=== PATIENT | female | born 1980 ===

== ENCOUNTER 2017-08-07 10:26 | Emergency (ER) | payer OTHER ==
[2017-08-07 11:10] VITALS: RESP 18; TEMP 97.6; BMI 23.1
[2017-08-07] MEDS ORDERED: Sodium Chloride 0.9% 1,000 ML IV STA (11:32)
--- NOTE | 2017-08-07 11:33 | ED PDOC ---
Arrival/HPI - General Chief Complaint: Abdominal Pain Time Seen by Provider: 08/07/17 11:31 Historian: Patient - History of Present Illness Narrative History of Present Illness (Text): 08/07/17 11:31 This 37 yo female with a pmh hypothyroidism, and constipation, presents to this ED c/o abdominal pain x 1 day. Patient stated after eating cookies yesterday morning, she developed an acute abdominal pain, which it has been progressively worsen. Patient stated abdominal pain radiates to her anus. Patient denies nausea, vomiting, rectal pain, rectal bleeding, sob, cp, urinary symptoms, or abnormal gait. Time/Duration: Other (see hpi) Quality: Aching Context: Home Past Medical History - Provider Review Nursing Documentation Reviewed: Yes - Past History Past History: No Previous - Infectious Disease Hx of Infectious Diseases: None - Tetanus Immunization Tetanus Immunization: Unknown - Reproductive Menopause: No - Past Medical History Past Medical History: No Previous - Cardiac Hx Cardiac Disorders: No - Pulmonary Hx Respiratory Disorders: No - Neurological Hx Neurological Disorder: No - HEENT Hx HEENT Disorder: No - Renal Hx Renal Disorder: No - Endocrine/Metabolic Hx Endocrine Disorders: Yes Hx Hypothyroidism: Yes - Hematological/Oncological Hx Blood Disorders: No - Integumentary Hx Dermatological Disorder: Yes (DX:NECK MASS) - Musculoskeletal/Rheumatological Hx Musculoskeletal Disorders: Yes Hx Back Pain: Yes - Gastrointestinal Hx Gastrointestinal Disorders: No - Genitourinary/Gynecological Hx Genitourinary Disorders: No - Psychiatric Hx Psychophysiologic Disorder: No Hx Depression: No Hx Emotional Abuse: No Hx Physical Abuse: No Hx Substance Use: No - Past Surgical History Past Surgical History: No Previous - Surgical History Hx Section: Yes - Anesthesia Hx Anesthesia: Yes Hx Anesthesia Reactions: No Hx Malignant Hyperthermia: No - Suicidal Assessment Feels Threatened In Home Enviroment: No Family/Social History - Physician Review Nursing Documentation Reviewed: Yes Family/Social History: Other (noncontributory) Smoking Status: Never Smoked Hx Alcohol Use: No Hx Substance Use: No Hx Substance Use Treatment: No Allergies/Home Meds Allergies/Adverse Reactions: Allergies No Known Allergies Allergy (Verified 03/05/16 16:31) Home Medications: Home Meds Medication Instructions Recorded Confirmed Levothyroxine [Levoxyl] 0.025 mg PO DAILY 01/02/15 03/05/16 Review of Systems - Review of Systems Constitutional: Normal. absent: Fatigue, Weight Change, Fevers Eyes: Normal ENT: Normal Respiratory: Normal. absent: SOB, Cough, Sputum Cardiovascular: Normal. absent: Chest Pain, Palpitations Gastrointestinal: Normal. absent: Abdominal Pain, Nausea, Vomiting Genitourinary Female: Normal. absent: Dysuria, Frequency, Hematuria Musculoskeletal: Normal Skin: Normal Neurological: Normal. absent: Headache, Dizziness Endocrine: Normal Hemo/Lymphatic: Normal Psychiatric: Normal Physical Exam Vital Signs Temp Pulse Resp BP Pulse Ox 08/07/17 13:00 69 18 109/78 100 08/07/17 11:41 75 18 107/76 100 08/07/17 11:02 97.6 F 80 18 105/71 99 Temperature: Afebrile Blood Pressure: Normal Pulse: Regular Respiratory Rate: Normal Appearance: Positive for: Well-Appearing, Non-Toxic, Comfortable Pain Distress: None Mental Status: Positive for: Alert and Oriented X 3 - Systems Exam Head: Present: Atraumatic, Normocephalic Pupils: Present: PERRL Extroacular Muscles: Present: EOMI Conjunctiva: Present: Normal Mouth: Present: Moist Mucous Membranes Neck: Present: Normal Range of Motion. No: Meningeal Signs Respiratory/Chest: Present: Clear to Auscultation, Good Air Exchange. No: Respiratory Distress, Accessory Muscle Use Cardiovascular: Present: Regular Rate and Rhythm, Normal S1, S2. No: Murmurs Abdomen: Present: Tenderness (Mild LLQ tenderness). No: Distention, Peritoneal Signs, Rebound, Guarding, McBurney's Point Tender, Rovsing's Sign Present, Hernias, Scars Rectal: Present: Hemorrhoids (very small hemorrhoid, nontender. 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 No: Occult Blood, Rectal Tenderness, Gross Blood, Melena, Fissures, Nodule/Mass/Lesions Genitourinary/Pelvic Exam: Present: Other (deferred) Back: Present: Normal Inspection Upper Extremity: Present: Normal Inspection, Normal ROM. No: Cyanosis, Edema Lower Extremity: Present: Normal Inspection. No: Edema Neurological: Present: GCS=15, CN II-XII Intact, Speech Normal, Motor Func Grossly Intact, Normal Sensory Function, Normal Cerebellar Funct, Gait Normal, Memory Normal Skin: Present: Warm, Dry, Normal Color. No: Rashes Psychiatric: Present: Alert, Oriented x 3, Normal Insight, Normal Concentration Medical Decision Making ED Course and Treatment: 08/07/17 14:02 Re-evaluation. Patient feels better. Discussed results and plan with patient who expresses understanding. All questions answered and there is agreement with the plan to discharge home with instructions. Patient stable for discharge. Return if symptoms persist or worsen. Re-evaluation Time: 14:29 Reassessment Condition: Re-examined, Improved - Lab Interpretations Lab Results: 08/07/17 12:00 08/07/17 12:00 Lab Results 08/07/17 12:00: Sodium 141, Potassium 3.9, Chloride 105, Carbon Dioxide 27, Anion Gap 13, BUN 7, Creatinine 0.7, Est GFR ( Amer) > 60, Est GFR (Non- Af Amer) > 60, Random Glucose 84, Calcium 8.8, Total Bilirubin 0.8, AST 42 H, ALT 28, Alkaline Phosphatase 61, Total Protein 7.4, Albumin 4.2, Globulin 3.1, Albumin/Globulin Ratio 1.4, Lipase 56 08/07/17 12:00: WBC 9.3 D, RBC 4.30, Hgb 13.5, Hct 38.9, MCV 90.5, MCH 31.4, MCHC 34.7, RDW 12.9, Plt Count 266, MPV 9.7, Gran % 63.8, Lymph % (Auto) 28.8, [place] % (Auto) 5.6, Eos % (Auto) 1.6, Baso % (Auto) 0.2, Gran # 5.91, Lymph # ( Auto) 2.7, [place] # (Auto) 0.5, Eos # (Auto) 0.2, Baso # (Auto) 0.02 08/07/17 11:44: Urine Color Yellow, Urine Appearance Clear, Urine pH 8.5, Ur Specific [place] 1.015, Urine Protein Trace H, Urine Glucose (UA) Negative, Urine Ketones Negative, Urine Blood Negative, Urine Nitrate Negative, Urine Bilirubin Negative, Urine Urobilinogen 0.2, Ur Leukocyte Esterase Negative, Urine RBC Negative, Urine WBC 2 - 5, Ur Epithelial Cells 6 - 8, Urine Bacteria Few, Urine HCG, Qual Negative I have reviewed the lab results: Yes Interpretation: No clinic. lab abnormalty - RAD Interpretation Narrative RAD Interpretations (Text): 08/07/17 13:59 PROCEDURE: CT Abdomen and Pelvis with contrast FINDINGS: LOWER THORAX: Unremarkable. LIVER: Unremarkable. No gross lesion or ductal dilatation. GALLBLADDER AND BILE DUCTS: Unremarkable. PANCREAS: Unremarkable. No gross lesion or ductal dilatation. SPLEEN: Unremarkable. ADRENALS: Unremarkable. No mass. KIDNEYS AND URETERS: Unremarkable. No hydronephrosis. No solid mass. VASCULATURE: Unremarkable. No aortic aneurysm. BOWEL: Unremarkable. No obstruction. No gross mural thickening. APPENDIX: Normal appendix. PERITONEUM: Unremarkable. No free fluid. No free air. LYMPH NODES: Unremarkable. No enlarged lymph nodes. BLADDER: Unremarkable. REPRODUCTIVE: There is a thick-walled ovarian cyst in the right ovary measuring 2 cm. This is most likely a recently ruptured cyst. Multiple large ovarian varices are seen on the left side of the pelvis. There is marked enlargement of the left ovarian vein extending up to the left renal vein BONES: No acute fracture. OTHER FINDINGS: None. IMPRESSION: There is a thick-walled ovarian cyst in the right ovary measuring 2 cm. This is most likely a recently ruptured cyst. Multiple large ovarian varices are seen on the left side of the pelvis. There is marked enlargement of the left ovarian vein extending up to the left renal vein Radiology Orders: 08/07/17 11:33 ABD & PELVIS IV CONTRAST ONLY [CT] Stat - Medication Orders Current Medication Orders: Discontinued Medications Famotidine (Pepcid) 20 mg IVP STAT STA Stop: 08/07/17 11:33 Last Admin: 08/07/17 12:00 Dose: 20 mg IVP Administration Document 08/07/17 12:00 RD (Rec: 08/07/17 12:00 RD [id number]) Charges for Administration # of IVP Administrations 1 Sodium Chloride (Sodium Chloride 0.9%) 1,000 mls @ 1,000 mls/hr IV .Q1H STA Stop: 08/07/17 12:31 Last Admin: 08/07/17 12:00 Dose: 1,000 mls/hr eMAR Start Stop Document 08/07/17 12:00 RD (Rec: 08/07/17 12:02 RD [id number]) Intravenous Solution Start Date 08/07/17 Start Time 12:00 End Date 08/07/17 End time 13:00 Total Infusion Time 60 Ketorolac Tromethamine (Toradol) 15 mg IVP STAT STA Stop: 08/07/17 11:33 Last Admin: 08/07/17 12:02 Dose: 15 mg MAR Pain Assessment Document 08/07/17 12:02 RD (Rec: 08/07/17 12:01 RD [id number]) Pain Reassessment Is this a pain reassessment? No Sleep Is patient sleeping during reassessment? No Presence of Pain Presence of Pain Yes Pain Scale Used Pain Scale Used Numeric Location Upper or Lower Lower Pain Location Body Site Abdomen Description Description Sharp Intensity of Pain at present 4 Acceptable Level of Pain 1 Pain Behavior Irritability IVP Administration Document 08/07/17 12:02 RD (Rec: 08/07/17 12:01 RD [id number]) Charges for Administration # of IVP Administrations 1 Disposition/Present on Arrival - Present on Arrival Any Indicators Present on Arrival: No History of DVT/PE: No History of Uncontrolled Diabetes: No Urinary Catheter: No History of Decub. 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 [place] medicina con comida para el dolor. Regrese a la emergencia si dolor aumenta. Prescriptions: Ibuprofen [Motrin] 600 mg PO Q8H PRN #20 tab PRN Reason: Pain, Severe (8-10) Referrals: Claudia Gallegos DO [Primary Care Provider] - Follow up with primary Avril Wood MD [Medical Doctor] - Follow up with primary Forms: [employer] (Syrian), WORK NOTE
[2017-08-07 11:42] VITALS: O2SAT 100
[2017-08-07 11:48] LABS: PH,URINE 8.5 (4.7-8.0); URINE BILIRUBIN NEGATIVE (NEGATIVE); URINE BLOOD NEGATIVE (NEGATIVE); URINE GLUCOSE (UA) NEGATIVE (NEGATIVE); URINE LEUKOCYTE ESTERASE NEGATIVE Leu/uL (NEGATIVE); URINE PROTEIN TRACE mg/dL (<30 mg/dL); URINE UROBILINOGEN 0.2 E.U./dL (<1 E.U./dL)
[2017-08-07 11:50] LABS: URINE APPEARANCE CLEAR (CLEAR); URINE COLOR YELLOW (YELLOW)
[2017-08-07 11:52] LABS: HCG,QUALITATIVE URINE NEGATIVE (NEGATIVE)
[2017-08-07 12:04] LABS: BASO # 0.02 K/mm3 (0.0-2.0); BASO % 0.2 % (0.0-3.0); EOS # 0.2 (0.0-0.7); EOS % 1.6 % (1.5-5.0); GRAN # 5.91 (1.4-6.5); GRAN % 63.8 % (50.0-68.0); HEMOGLOBIN 13.5 g/dL (12.0-16.0); LYMPH # 2.7 (1.2-3.4); LYMPH % 28.8 % (22.0-35.0); MEAN CELL VOLUME 90.5 fl (80.0-105.0); MEAN CORPUSCULAR HEMOGLOBIN 31.4 pg (25.0-35.0); MEAN CORPUSCULAR HGB CONC 34.7 g/dl (31.0-37.0); MEAN PLATELET VOLUME 9.7 fl (7.0-11.0); MONO # 0.5 (0.1-0.6); MONO % 5.6 % (1.0-6.0); RBC 4.3 10^6/uL (3.5-6.1); RED CELL DISTRIBUTION WIDTH 12.9 % (11.5-14.5); WHITE BLOOD COUNT 9.3 10^3/ul (4.5-11.0)
[2017-08-07 12:13] LABS: URINE RBC NEGATIVE /hpf (0-2)
[2017-08-07 12:14] LABS: URINE BACTERIA FEW (NEG)
[2017-08-07 12:16] LABS: ALB/GLOB RATIO 1.4 (1.1-1.8); ALBUMIN 4.2 g/dL (3.0-4.8); ALT/SGPT 28 U/L (7-56); AST/SGOT 42 U/L (14-36); BLOOD UREA NITROGEN 7 mg/dL (7-21); CALCIUM 8.8 mg/dL (8.4-10.5); GFR AFRICAN-AMERICAN > 60; GFR NON-AFRICAN AMERICAN > 60; LIPASE 56 U/L (23-300)
[2017-08-07] MEDS ORDERED: Iohexol 350 MG/100 ML VIAL ONE (12:27)
--- NOTE | 2017-08-07 13:12 | CT ---
PROCEDURE: CT Abdomen and Pelvis with contrast HISTORY: LLQ abdominal pain COMPARISON: None. TECHNIQUE: Contrast dose: 100 cc of Omni 350 Radiation dose: Total exam DLP = 412 mGy-cm. This CT exam was performed using one or more of the following dose reduction techniques: Automated exposure control, adjustment of the mA and/or kV according to patient size, and/or use of iterative reconstruction technique. FINDINGS: LOWER THORAX: Unremarkable. LIVER: Unremarkable. No gross lesion or ductal dilatation. GALLBLADDER AND BILE DUCTS: Unremarkable. PANCREAS: Unremarkable. No gross lesion or ductal dilatation. SPLEEN: Unremarkable. ADRENALS: Unremarkable. No mass. KIDNEYS AND URETERS: Unremarkable. No hydronephrosis. No solid mass. VASCULATURE: Unremarkable. No aortic aneurysm. BOWEL: Unremarkable. No obstruction. No gross mural thickening. APPENDIX: Normal appendix. PERITONEUM: Unremarkable. No free fluid. No free air. LYMPH NODES: Unremarkable. No enlarged lymph nodes. BLADDER: Unremarkable. REPRODUCTIVE: There is a thick-walled ovarian cyst in the right ovary measuring 2 cm. This is most likely a recently ruptured cyst. Multiple large ovarian varices are seen on the left side of the pelvis. There is marked enlargement of the left ovarian vein extending up to the left renal vein BONES: No acute fracture. OTHER FINDINGS: None. IMPRESSION: There is a thick-walled ovarian cyst in the right ovary measuring 2 cm. This is most likely a recently ruptured cyst. Multiple large ovarian varices are seen on the left side of the pelvis. There is marked enlargement of the left ovarian vein extending up to the left renal vein
[2017-08-07 15:24] VITALS: BP 111/74; PULSE 68
== END 2017-08-07 15:26 | disposition home or self-care (01) ==
LOC: ED 10:26
DX: N83.201 Unspecified ovarian cyst, right side (principal); I86.8 Varicose veins of other specified sites; E03.9 Hypothyroidism, unspecified
CPT/HCPCS: 74177; 80053; 81001; 81025; 83690; 84703; 85025; 87086; 96361; 96374; 96375; 99284; J1885; J7040; Q9967

== ENCOUNTER 2018-04-03 18:48 | Emergency (ER) | payer OTHER ==
[2018-04-03 18:48] VITALS: BMI 23.1
--- NOTE | 2018-04-03 20:42 | ED PDOC ---
Arrival/HPI - General Chief Complaint: Female Genitourinary Time Seen by Provider: 04/03/18 19:08 - History of Present Illness Narrative History of Present Illness (Text): 04/03/18 20:11 A 38 year old female who is 4 weeks presents to the emergency department complaining of brown discharge from earlier today. Patient reports experiencing associated lower back pain and states she had an ultrasound 2 weeks ago confirming her . Patient denies any vaginal bleeding, fever, shortness of breath, nausea, vomiting, headache, dizziness, or any other complaints. PMD: Claudia Howard Time/Duration: Other (earlier today) Symptom Onset: Gradual Symptom Course: Unchanged Activities at Onset: Light Context: Home Past Medical History - Provider Review Nursing Documentation Reviewed: Yes - Past History Past History: No Previous - Infectious Disease Hx of Infectious Diseases: None - Tetanus Immunization Tetanus Immunization: Unknown - Past Medical History Past Medical History: No Previous - Cardiac Hx Cardiac Disorders: No - Pulmonary Hx Respiratory Disorders: No - Neurological Hx Neurological Disorder: No - HEENT Hx HEENT Disorder: No - Renal Hx Renal Disorder: No - Endocrine/Metabolic Hx Endocrine Disorders: Yes Hx Hypothyroidism: Yes - Hematological/Oncological Hx Blood Disorders: No - Integumentary Hx Dermatological Disorder: Yes (DX:NECK MASS) - Musculoskeletal/Rheumatological Hx Musculoskeletal Disorders: Yes Hx Back Pain: Yes - Gastrointestinal Hx Gastrointestinal Disorders: No - Genitourinary/Gynecological Hx Genitourinary Disorders: No - Psychiatric Hx Psychophysiologic Disorder: No Hx Depression: No Hx Emotional Abuse: No Hx Physical Abuse: No Hx Substance Use: No - Past Surgical History Past Surgical History: No Previous - Surgical History Hx Section: Yes - Anesthesia Hx Anesthesia: Yes Hx Anesthesia Reactions: No Hx Malignant Hyperthermia: No - Suicidal Assessment Feels Threatened In Home Enviroment: No Family/Social History - Physician Review Nursing Documentation Reviewed: Yes Family/Social History: No Known Family HX Smoking Status: Never Smoked Hx Alcohol Use: No Hx Substance Use: No Hx Substance Use Treatment: No Allergies/Home Meds Allergies/Adverse Reactions: Allergies No Known Allergies Allergy (Verified 03/05/16 16:31) Home Medications: Home Meds Medication Instructions Recorded Confirmed Levothyroxine [Levoxyl] 0.025 mg PO DAILY 01/02/15 03/05/16 Review of Systems - Physician Review All systems were reviewed & negative as marked: Yes - Review of Systems Constitutional: absent: Fevers Respiratory: absent: SOB Gastrointestinal: absent: Nausea, Vomiting Genitourinary Female: Urine Output Changes (brown discharge). absent: Vaginal Bleeding Neurological: absent: Headache, Dizziness Physical Exam Vital Signs Reviewed: Yes Vital Signs Temp Pulse Resp BP Pulse Ox 04/03/18 18:48 98.5 F 69 18 102/66 100 Temperature: Afebrile Blood Pressure: Normal Pulse: Regular Respiratory Rate: Normal Appearance: Positive for: Well-Appearing, Non-Toxic Mental Status: Positive for: Alert and Oriented X 3 - Systems Exam Head: Present: Atraumatic, Normocephalic Pupils: Present: PERRL Extroacular Muscles: Present: EOMI Conjunctiva: Present: Normal Respiratory/Chest: Present: Clear to Auscultation, Good Air Exchange. No: Respiratory Distress, Accessory Muscle Use Cardiovascular: Present: Regular Rate and Rhythm, Normal S1, S2. No: Murmurs Abdomen: No: Tenderness, Distention, Peritoneal Signs Back: Present: Normal Inspection Upper Extremity: Present: Normal Inspection. No: Cyanosis, Edema Lower Extremity: Present: Normal Inspection. No: Edema Neurological: Present: GCS=15, CN II-XII Intact, Speech Normal Skin: Present: Warm, Dry, Normal Color. No: Rashes Psychiatric: Present: Alert, Oriented x 3, Normal Insight, Normal Concentration Medical Decision Making ED Course and Treatment: 04/03/18 20:17 Impression:A 38 year old female who is 4 weeks presents to the emergency department complaining of brown discharge. Plan: -- Type and screen -- Labs -- Urine culture -- Urinalysis -- Ultrasound -- Reassess and disposition Prior Visits: Notes and results from previous visits were reviewed. Progress Notes: Labs reviewed : beta quant 25,430, blood type O+. US : PROCEDURE: US TRANSVAGINAL Electronically signed on Apr 03, 2018 11:03:51 PM EST by: Tavares Han M.D IMPRESSION: 1. Intrauterine gestation, 6 weeks 4 day based on todays crown/rump length. 2. Left ovarian cyst. On reevaluation, patient reports no abdominal pain or vaginal bleeding. On exam, patient remains awake alert and oriented 3 in no acute distress. Labs and US results d/w the patient. Advised to follow up with program director scouting in 1-2 days without fail. Return to the emergency room at any time for any new or worsening symptoms. Patient states she fully agrees with and understands discharge instructions. States that she agrees with the plan and disposition. Verbalized and repeated discharge instructions and plan. I have given the patient opportunity to ask any additional questions. - RAD Interpretation Radiology Orders: 04/03/18 20:20 TRANSVAGINAL [US] Stat - PA / INSTRUCTIONAL ASSISTANT / Resident Statement / has reviewed & agrees with the documentation as recorded. Disposition/Present on Arrival - Present on Arrival Any Indicators Present on Arrival: No History of DVT/PE: No History of Uncontrolled Diabetes: No Urinary Catheter: No History of Decub. Ulcer: No History Surgical Site Infection Following: None - Disposition Have Diagnosis and Disposition been Completed?: Yes Diagnosis: Threatened miscarriage in early Disposition: HOME/ ROUTINE Disposition Time: 23:00 Patient Plan: Discharge Condition: STABLE Discharge Instructions (ExitCare): Bleeding With (DC) Additional Instructions: Thank you for letting us take care of you today. You were treated for threatened miscarriage. The emergency medical care you received today was directed at your acute symptoms Return to the Emergency Department if your symptoms worsen, do not improve, or if you have any other problems. Please contact your doctor in 2 days for re-evaluation and follow up. Bring any paperwork you were given at discharge with you along with any medications you are taking to your follow up visit. Our treatment cannot replace ongoing medical care by a primary care provider (PCP) outside of the emergency department. Thank you for allowing the [facility] team to be part of your care today. If you had a urine culture: It will take several days for the results, if any change in treatment is needed we will contact you. Referrals: Claudia Gallegos DO [Primary Care Provider] - Follow up with primary Forms: [employer] (Malaysian)
[2018-04-03 20:58] LABS: BASO # 0.01 K/mm3 (0.0-2.0); BASO % 0.1 % (0.0-3.0); EOS # 0.2 (0.0-0.7); EOS % 1.7 % (1.5-5.0); GRAN # 4.63 (1.4-6.5); GRAN % 54.1 % (50.0-68.0); HEMOGLOBIN 11.6 g/dL (12.0-16.0); LYMPH # 3.2 (1.2-3.4); LYMPH % 36.9 % (22.0-35.0); MEAN CELL VOLUME 89.7 fl (80.0-105.0); MEAN CORPUSCULAR HEMOGLOBIN 30.7 pg (25.0-35.0); MEAN CORPUSCULAR HGB CONC 34.2 g/dl (31.0-37.0); MEAN PLATELET VOLUME 9.3 fl (7.0-11.0); MONO # 0.6 (0.1-0.6); MONO % 7.2 % (1.0-6.0); PH,URINE 6.5 (4.7-8.0); RBC 3.78 10^6/uL (3.5-6.1); RED CELL DISTRIBUTION WIDTH 12.9 % (11.5-14.5); URINE BILIRUBIN NEGATIVE (NEGATIVE); URINE BLOOD TRACE-INTACT (NEGATIVE); URINE GLUCOSE (UA) NEGATIVE (NEGATIVE); URINE LEUKOCYTE ESTERASE NEGATIVE Leu/uL (NEGATIVE); URINE PROTEIN NEGATIVE mg/dL (<30 mg/dL); URINE UROBILINOGEN 0.2 E.U./dL (<1 E.U./dL); WHITE BLOOD COUNT 8.6 10^3/uL (4.5-11.0)
[2018-04-03 21:00] LABS: URINE APPEARANCE CLEAR (CLEAR); URINE COLOR YELLOW (YELLOW)
[2018-04-03 21:05] LABS: ALB/GLOB RATIO 1.3 (1.1-1.8); ALBUMIN 4.2 g/dL (3.0-4.8); ALT/SGPT 28 U/L (7-56); AST/SGOT 29 U/L (14-36); BLOOD UREA NITROGEN 8 mg/dL (7-21); CALCIUM 8.9 mg/dL (8.4-10.5); GFR NON-AFRICAN AMERICAN > 60
[2018-04-03 22:05] LABS: URINE BACTERIA FEW /hpf
[2018-04-03 23:18] VITALS: BP 101/57; PULSE 80; RESP 20; TEMP 98.1; O2SAT 96
--- NOTE | 2018-04-04 09:51 | US ---
Date of service: 04/03/2018 PROCEDURE: First trimester ultrasound HISTORY: OB US, vag bleed, 1 month preg COMPARISON: None . TECHNIQUE: Standard protocol for this study/examination. FINDINGS: LMP: 02/20/2018. Prior examinations from the current : None. TECHNIQUE: Real-time 2D imaging, duplex and color Doppler. FINDINGS: Cardiac activity: Present Rate: One hundred thirty-one BPM Measurements: [place] rump length: 0.59 cm Gestational age based on CRL 6 weeks 3 days Gestational age 6 weeks 4 days based on gestational sac measurement 2.07 cm Gestational age derived from LMP: 6 weeks RENE based on LMP: 11/27/2018 RENE based on biometry: 11/23/2018 Gestational concordance documented Yolk sac identified Cervix: No Cervical abnormalities: Negative examination for cervical dilatation or effacement. Closed cervix. Subchorionic hemorrhage: None UTERUS: 5 x 7.2 x 8.5 cm. ADNEXA: Right: 1.8 x 2.2 x 2.5 cm. Normal Doppler arterial waveform documented. Left: 2.8 x 3 x 3.3 cm. Simple cyst 1.2 x 1.5 cm. Normal Doppler arterial waveform documented Fluid in the cul-de-sac: None. IMPRESSION: Six weeks 4 days live intrauterine gestation. Gestational concordance documented. Concordant findings (preliminary report) provided by [facility].
== END 2018-04-03 23:31 | disposition home or self-care (01) ==
LOC: ED 18:48
DX: O20.0 Threatened abortion (principal); Z3A.01 Less than 8 weeks gestation of pregnancy

== ENCOUNTER 2018-06-04 08:52 | Emergency (ER) | payer OTHER ==
[2018-06-04 09:05] VITALS: BMI 25.8
[2018-06-04 09:16] VITALS: RESP 18; TEMP 98.8; O2SAT 100
[2018-06-04 09:36] LABS: PH,URINE 7.5 (4.7-8.0); URINE BILIRUBIN NEGATIVE (NEGATIVE); URINE BLOOD TRACE-LYSED (NEGATIVE); URINE GLUCOSE (UA) NEGATIVE (NEGATIVE); URINE LEUKOCYTE ESTERASE NEGATIVE Leu/uL (NEGATIVE); URINE PROTEIN NEGATIVE mg/dL (<30 mg/dL); URINE UROBILINOGEN 0.2 E.U./dL (<1 E.U./dL)
[2018-06-04 09:42] LABS: URINE APPEARANCE CLEAR (CLEAR); URINE COLOR YELLOW (YELLOW)
--- NOTE | 2018-06-04 09:49 | ED PDOC ---
Arrival/HPI - General Chief Complaint: Back Pain Time Seen by Provider: 06/04/18 09:17 Historian: Patient - History of Present Illness Narrative History of Present Illness (Text): 06/04/18 09:45 38yo female with pmhx of hyperthyroid who present with complaint of b/l flank pain that radiates to her pelvic area x 5days. States she is currently 14weeks and saw her OB last week. Notes normal without complication up to this point. States she have appointment with her OB for next week. Admits to nausea, but states is chronic with her . Denies vaginal bleeding, dysuria, fever, chills, back pain, vomiting, diarrhea, constipation, any other complaint. Past Medical History - Provider Review Nursing Documentation Reviewed: Yes - Past History Past History: No Previous - Infectious Disease Hx of Infectious Diseases: None - Tetanus Immunization Tetanus Immunization: Unknown - Reproductive Menopause: No - Past Medical History Past Medical History: No Previous - Cardiac Hx Cardiac Disorders: No - Pulmonary Hx Respiratory Disorders: No - Neurological Hx Neurological Disorder: No - HEENT Hx HEENT Disorder: No - Renal Hx Renal Disorder: No - Endocrine/Metabolic Hx Endocrine Disorders: Yes Hx Hypothyroidism: Yes - Hematological/Oncological Hx Blood Disorders: No - Integumentary Hx Dermatological Disorder: Yes ([id number] MASS) - Musculoskeletal/Rheumatological Hx Musculoskeletal Disorders: Yes Hx Back Pain: Yes - Gastrointestinal Hx Gastrointestinal Disorders: No - Genitourinary/Gynecological Hx Genitourinary Disorders: No - Psychiatric Hx Psychophysiologic Disorder: No Hx Depression: No Hx Emotional Abuse: No Hx Physical Abuse: No Hx Substance Use: No - Past Surgical History Past Surgical History: No Previous - Surgical History Hx Section: Yes - Anesthesia Hx Anesthesia: Yes Hx Anesthesia Reactions: No Hx Malignant Hyperthermia: No - Suicidal Assessment Feels Threatened In Home Enviroment: No Family/Social History - Physician Review Nursing Documentation Reviewed: Yes Family/Social History: Unknown Family HX Smoking Status: Never Smoked Hx Alcohol Use: No Hx Substance Use: No Hx Substance Use Treatment: No Allergies/Home Meds Allergies/Adverse Reactions: Allergies No Known Allergies Allergy (Verified 03/05/16 16:31) Home Medications: Home Meds Medication Instructions Recorded Confirmed Levothyroxine [Levoxyl] 0.025 mg PO DAILY 01/02/15 06/04/18 Review of Systems - Physician Review All systems were reviewed & negative as marked: Yes - Review of Systems Constitutional: Normal Eyes: Normal ENT: Normal Respiratory: Normal Cardiovascular: Normal Gastrointestinal: Abdominal Pain, Nausea. absent: Constipation, Diarrhea, Vomiting, Hematochezia, Hematemesis Genitourinary Female: Normal Musculoskeletal: Normal Skin: Normal Neurological: Normal Endocrine: Normal Hemo/Lymphatic: Normal Psychiatric: Normal Physical Exam Vital Signs Reviewed: Yes Vital Signs Temp Pulse Resp BP Pulse Ox 06/04/18 09:15 98.8 F 78 18 106/58 L 100 Temperature: Afebrile Blood Pressure: Normal Pulse: Regular Respiratory Rate: Normal Appearance: Positive for: Well-Appearing, Non-Toxic, Comfortable Pain Distress: None Mental Status: Positive for: Alert and Oriented X 3 - Systems Exam Head: Present: Atraumatic, Normocephalic Pupils: Present: PERRL Extroacular Muscles: Present: EOMI Conjunctiva: Present: Normal Mouth: Present: Moist Mucous Membranes Neck: Present: Normal Range of Motion Respiratory/Chest: Present: Clear to Auscultation, Good Air Exchange. No: Respiratory Distress, Accessory Muscle Use Cardiovascular: Present: Regular Rate and Rhythm, Normal S1, S2. No: Murmurs Abdomen: Present: Distention (Gravidus abdomen), Normal Bowel Sounds. No: Tenderness, Peritoneal Signs, Rebound, Guarding, McBurney's Point Tender, Rovsing's Sign Present Back: Present: Normal Inspection Upper Extremity: Present: Normal Inspection. No: Cyanosis, Edema Lower Extremity: Present: Normal Inspection. No: Edema Neurological: Present: GCS=15, CN II-XII Intact, Speech Normal Skin: Present: Warm, Dry, Normal Color. No: Rashes Psychiatric: Present: Alert, Oriented x 3, Normal Insight, Normal Concentration Medical Decision Making ED Course and Treatment: 06/04/18 13:54 38yo female present with stated history. Notes 14weeks . She denied vaginal bleeding/discharge in ED. UA Abdominal/ US Impression: Single living fetus with a composite sonographic age of 15 weeks 1 day. Estimated heart rate 158 beats per min. Currently, there is evidence of placenta previa. Due to placental trophotropism, the diagnosis of the placenta previa is generally not made before 20 weeks gestation. Follow-up ultrasound is recommended. Advise an anomaly screen at 16-18 weeks gestational age. Abdominal US IMPRESSION: Unremarkable abdominal sonogram. UA - No UTI Result was DW the pt. she noted that she have a OB and appointment next week. She was strongly advised to f/u with the OB. TRT ED for any new or worsening symptoms - Lab Interpretations Lab Results: Urine Color Yellow (YELLOW) 06/04/18 09:08 Urine Appearance Clear (CLEAR) 06/04/18 09:08 Urine pH 7.5 (4.7-8.0) 06/04/18 09:08 Ur Specific [place] 1.015 (1.005-1.035) 06/04/18 09:08 Urine Protein Negative mg/dL (<30 mg/dL) 06/04/18 09:08 Urine Glucose (UA) Negative mg/dL (NEGATIVE) 06/04/18 09:08 Urine Ketones Negative mg/dL (NEGATIVE) 06/04/18 09:08 Urine Blood Trace-lysed (NEGATIVE) H 06/04/18 09:08 Urine Nitrate Negative (NEGATIVE) 06/04/18 09:08 Urine Bilirubin Negative (NEGATIVE) 06/04/18 09:08 Urine Urobilinogen 0.2 E.U./dL (<1 E.U./dL) 06/04/18 09:08 Ur Leukocyte Esterase Negative Sandra/uL (NEGATIVE) 06/04/18 09:08 Disposition/Present on Arrival - Present on Arrival Any Indicators Present on Arrival: No History of DVT/PE: No History of Uncontrolled Diabetes: No Urinary Catheter: No History of Decub. Ulcer: No History Surgical Site Infection Following: None - Disposition Have Diagnosis and Disposition been Completed?: Yes Diagnosis: Abdominal pain, Disposition: HOME/ ROUTINE Disposition Time: 11:55 Patient Plan: Discharge Condition: STABLE Discharge Instructions (ExitCare): Acute Abdomen (Belly Pain) Additional Instructions: Follow up with your OB Return to ED for any new symptoms Referrals: [facility] [Outside] - Follow up with primary Forms: [employer] ([place]ian)
[2018-06-04 09:51] LABS: URINE BACTERIA SMALL /hpf; URINE RBC 0 - 2 /hpf (0-2); URINE WBC 0 - 2 /hpf (0-6)
--- NOTE | 2018-06-04 11:08 | US ---
Date of service: 06/04/2018 HISTORY: abdominal pain COMPARISON: None. TECHNIQUE: Sonographic evaluation of the abdomen. FINDINGS: LIVER: Measures 17.3 cm. Normal echogenicity of the liver parenchyma. No mass. No intrahepatic bile duct dilatation. GALLBLADDER: Unremarkable. No gallstones. COMMON BILE DUCT: Measures 5.7 mm. No stones. No dilatation. PANCREAS: Unremarkable as visualized. No mass. No ductal dilatation. RIGHT KIDNEY: Measures 11.3 x 5.1 x 5.0cm. Normal echogenicity. No calculus, mass, or hydronephrosis. LEFT KIDNEY: Measures 12.4 x 6.0 x 5.9cm. Normal echogenicity. No calculus, mass, or hydronephrosis. SPLEEN: Normal in size and contour. No mass. 10.2 x 5.7 x 4.0 AORTA: No aneurysmal dilatation. IVC: Unremarkable. OTHER FINDINGS: None. IMPRESSION: Unremarkable abdominal sonogram.
[2018-06-04 11:33] VITALS: BP 102/64; PULSE 72
--- NOTE | 2018-06-04 11:46 | US ---
Indication: abdominal pain/ Comparison: Ob transvaginal ultrasound performed 04/03/18 Technique: Real-time ultrasound was performed through the pelvis. Findings: There is a single living fetus in variable presentation. Anterior placenta appears to extend to the cervix. The right ovary measures approximately 3.2 x 1.4 x 2.8 cm. The left ovary measures approximately 4.0 x 2.2 x 3.2 cm. Blood flow demonstrated bilateral ovaries. Cervix length measures approximately 5.5 cm. Measurements and calculations: Fetus has a composite sonographic age of 15 weeks 1 day. This calculation is based on the biparietal diameter, head circumference, abdominal circumference, and femur length. Estimated heart rate 158 beats per min. Estimated weight 108.3 g. Impression: Single living fetus with a composite sonographic age of 15 weeks 1 day. Estimated heart rate 158 beats per min. Currently, there is evidence of placenta previa. Due to placental trophotropism, the diagnosis of the placenta previa is generally not made before 20 weeks gestation. Follow-up ultrasound is recommended. Advise an anomaly screen at 16-18 weeks gestational age.
== END 2018-06-04 12:51 | disposition home or self-care (01) ==
LOC: ED 08:52
DX: O26.892 Other specified pregnancy related conditions, second trimester (principal); R10.9 Unspecified abdominal pain; Z3A.14 14 weeks gestation of pregnancy